=== PATIENT | female | born 1965 | race Caucasian/White ===

== ENCOUNTER 2025-09-20 14:32 | Inpatient (IN) | payer MEDICAID ==
[~2025-09-20] VITALS: Ht 165.1 cm; Wt 98.1 kg
--- NOTE | 2025-09-20 15:03 | ELECTROCARDIOGRAPH REPORT ---
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 Bubba Bowman Measurements Intervals [place] Rate: 65 P: 47 IN: 151 QRS: -40 QRSD: 124 T: 77 QT: 422 QTc: 439 Interpretive Statements Sinus rhythm RBBB and LAFB Nonspecific T abnormalities, lateral leads Electronically Signed On 09-22-2025 21:14:[address] Bubba Bowman Please click the below link to view image of tracing.
--- NOTE | 2025-09-20 15:10 | Physician Documentation ---
History of Present Illness ~ Chief Complaint: Dizziness Stated Complaint: FALL/WEAKNESS Time Seen by MD: 19:59 OK to notify your PCP?: Yes Source: patient Mode of Arrival: POV Exam Limitations: no limitations HPI 60 year old female with fibromyalgia presents to the ED after an episode of lower extremity weakness this morning at 0930. Patient states that she was walking down the hallway of her home when suddenly her legs felt "numb/noodly" and she dropped to the floor. While on the floor she reports feeling lightheaded. She states that she sat on the ground for about ten minutes because she felt as though her legs would not work, she sat there taking deep breaths until she was able to ambulate to a chair. She states that nothing like this has happened to her before and that she continued to feel "weird" for a couple hours after this event. She also notes that recently she has dealt with some mild diffuse itching and she has had a slight headache behind her right eye. She denies any back pain or head strike. She feels back to her baseline at this time. Patient denies any other associated symptoms. Patient denies any other alleviating or exacerbating factors at this time. Medication Reconciliation Allergies: Coded Allergies: No Known Allergies (Unverified , 09/21/25) Scheduled Duloxetine HCl (Duloxetine HCl), 1 CAP PO DAILY, (Reported) Hydrochlorothiazide (Hydrochlorothiazide), 1 TAB PO DAILY, (Reported) Past Medical History Past Medical History: Fibromyalgia Past Surgical History: noncontributory Lives In: Home Review of Systems All Other Systems at this time: Reviewed and Negative ROS As stated above in the HPI, otherwise all systems are reviewed and negative. Physical Exam Vital Signs: Temperature: 97.8, Source: Temporal, Heart Rate: 78, Respiratory Rate: 15, BP: 126/88, Pulse Oximetry: 98, Weight: 98.100 Oxygen Flow Rate: 0 Physical Exam General: Patient is awake, alert, oriented x4 in no acute distress and well appearing.~ Head: Normocephalic and atraumatic. Eyes: Conjunctival normal. EOMI. PERRL. ENT: Mucous membranes moist. Neck: Supple, trachea is midline. Chest: Clear to auscultation bilaterally without rales, rhonchi, or wheezes. There is no accessory muscle use or retractions. Cardiac: RRR without murmurs, gallops, or rubs. Abd: Soft, nondistended, nontender, with normoactive bowel sounds. No guarding, rebound, or rigidity. Extremities: Normal strength. Normal range of motion. No deformities or edema. Back: No midline spinal or CVA tenderness. Skin: Warm and dry with no significant rash appreciated. Neuro: Cranial nerves II-XII grossly intact. No focal neuro deficits. Patient ambulating without difficulty. Progress Progress Note 2040: Tele-nurology advises admission based on age of patient. Results/Orders Results/Orders Orders - ARIAS DAVIS MD Ct Head (09/20/25 20:40) Page Hospitalist (09/20/25:31) Fill Out Med Reconciliation (09/20/25:31) Completed Orders - ARIAS DAVIS MD Ct Head (09/20/25 20:40) Normal Saline 1000ml (0.9% Sodium Chlori (09/20/25 22:15) Ceftriaxone/Y9f-Lpjtgrpm 1gm (Rocephin 1 (09/20/25 22:15) Acetaminophen 1,000mg/100ml Iv (Ofirmev (09/20/25 22:15) Vital Signs 09/20/25 09/20/25 09/20/25 14:50 20:22 20:40 Temp 97.8 98.7 Pulse 78 68 Resp 15 18 B/P (MAP) 126/88 141/95 (110) Pulse Ox 98 95 O2 Flow Rate 0 0 Laboratory Tests Test 09/20/25 15:05 09/20/25 16:55 09/20/25 18:57 White Blood Count 6.5 Red Blood Count 4.62 Hemoglobin 14.6 Hematocrit 42.9 Mean Corpuscular Volume 93.0 Mean Corpuscular Hemoglobin 31.6 H Mean Corpuscular Hemoglobin Concent 34.0 Red Cell Distribution Width 13.7 Platelet Count 302 Mean Platelet Volume 7.1 L Neutrophils (%) (Auto) 53.4 Lymphocytes (%) (Auto) 34.7 Monocytes (%) (Auto) 9.0 Eosinophils (%) (Auto) 2.0 Basophils (%) (Auto) 0.9 Neutrophils # (Auto) 3.5 Lymphocytes # (Auto) 2.3 Monocytes # (Auto) 0.6 Eosinophils # (Auto) 0.1 Basophils # (Auto) 0.1 CBC Comment Sodium Level 139 Potassium Level 3.3 L Chloride Level 101 Carbon Dioxide Level 30.3 Anion Gap 8 Blood Urea Nitrogen 11 Creatinine 0.81 Estimated GFR/1.73 m2 72 BUN/Creatinine Ratio 13.6 Glucose Level 99 Hemoglobin A1c 5.5 Calcium Level 9.6 Troponin I High Sensitivity 5 5 6 Pro-B-Type Natriuretic Peptide 39 Albumin 4.1 Chemistry Comments Troponin I High Sens Percent Delta 0 20 Troponin I Hi Sens Absolute Change 0 1 EKG/XRAY/CT/US/VASC/MRI Chest X-Ray : Interpreted By: radiologist Views: 1 VIEW Additional Comments CHEST RADIOGRAPH INDICATION: CP TECHNIQUE: Single frontal view of the chest was obtained. COMPARISON: None FINDINGS: No focal consolidation. No significant pleural effusion. No pneumothorax. Nonenlarged cardiomediastinal silhouette. IMPRESSION: No acute pulmonary process. Electronically Signed by:YUNIOR TORRES MD Date & Time: 09/20/25 1523 Dictated by: YUNIOR TORRES MD Dictation date and time: 09/20/25 1503 Primary Care Provider: NO PRIMARY CARE PROVIDER cc: LEONARDO LEHMAN ~ Medical Decision Making Additional information obtaine: N/A Findings Patient presents to the emergency room for evaluation that has per HPI. Differentials include but are not limited to stroke, conversion disorder, functional neurologic systems disorder, transverse myelitis therefore emergent labs and imaging indicated. Neurology consulted recommends admission. Differential Dx:Considerations: Include: anemia, CVA, dehydration, dysrhythmia, electrolyte imbalance, encephalopathy, Guillain-Stewart, hypoglycemia, hypotension, hypovolemia, labyrinthitis, Meniere's disease, myasathenia gravis, myocardial infarction, pulmonary embolus, renal failure, respiratory failure, TIA, VBI, vertigo central, vertigo peripheral, vestibular neuronitis, other Departure Admitted to Inpatient Unit: yes, to hospitalist Impression: Primary Impression: Lower extremity weakness Condition: Guarded Referrals: NO PRIMARY CARE PROVIDER (PCP) Signature Scribe Signature: Scribed for Arias Davis MD by Scott Magaña . 09/20/25 20:40 Attestation: The note accurately reflects work and decisions made by me.Arias Davis MD 09/20/25 22:52 LEONARDO LEHMAN Sep 20, 2025 15:10 SCOTT OCAMPO Sep 20, 2025 20:43 ARIAS DAVIS MD Sep 20, 2025 22:52
[2025-09-20 15:11] LABS: MEAN PLATELET VOLUME 7.1 FL (7.4-10.4); RED CELL DISTRIBUTION WIDTH 13.7 % (11.5-14.5)
--- NOTE | 2025-09-20 15:26 | RADIOLOGY REPORT ---
CHEST RADIOGRAPH INDICATION: CP TECHNIQUE: Single frontal view of the chest was obtained. COMPARISON: None FINDINGS: No focal consolidation. No significant pleural effusion. No pneumothorax. Nonenlarged cardiomediastinal silhouette. IMPRESSION: No acute pulmonary process.
[2025-09-20 15:33] LABS: CREATININE 0.81 MG/DL (0.40-0.90); PRO BRAIN NATRIURETIC PEPTIDE 39 PG/ML (0-125); TOTAL CARBON DIOXIDE 30.3 MMOL/L (24-32); eCRCL 66 ML/MIN; eGFR 72 ML/MIN
--- NOTE | 2025-09-20 21:20 | [facility] CONSULT REPORT ---
[facility] Procedure Note [facility] Procedure Note Consult [facility] Note # Demographics Consult Type: General Neurology Patient Location: Emergency Room First Name: EVIE Last Name: SHANNAN Date of : 1965 Age: 60 Gender: Female Facility: [facility] Time of Initial Page (): 09/20/2025 20:12 First Contact with Site (): 09/20/2025 20:13 # HPI History: [id number] Patient was walking in the morning and her legs gave out and she was not able to walk. She had bilateral leg weakness and her symptoms have resulted and lasted approximately ten minutes. She has a history of fibromyalgia H/O HTN Duration: - resolved # Scores Time of exam and NIHSS (): 09/20/2025 21:18 Level of Consciousness 1a: [0] = Alert; keenly responsive LOC Questions 1b: [0] = Answers both questions correctly LOC Commands 1c: [0] = Performs both tasks correctly Best Gaze 2: [0] = Normal Visual 3: [0] = No visual loss Facial Palsy 4: [0] = Normal symmetrical movements Motor Arm Left 5a: [0] = No drift Motor Arm Right 5b: [0] = No drift Motor Leg Left 6a: [0] = No drift Motor Leg Right 6b: [0] = No drift Limb Ataxia 7: [0] = Absent Sensory 8: [0] = Normal Best Language 9: [0] = No aphasia Dysarthria 10: [0] = Normal Extinction and Inattention 11: [0] = No abnormality NIHSS Total: 0 ABCD2 Score for TIA: [1] = Age >/= 60 years: Yes [1] = BP >/= 140/90: Yes [0] = Clinical features of the TIA: other symptoms [1] = Duration of symptoms: 10-59 minutes [0] = History of diabetes: No ABCD2 Total: 3 # Assessment Impression: - Transient Ischemic Attack # Plan Thrombolytic/Intervention: NOT IV Thrombolysis or IA Intervention candidate Thrombolytic Exclusion (< 3 hour window): - NIHSS = 0 Intraarterial Exclusion: - clinical exam not consistent with presence of large vessel occlusion (LVO), can reconsider if LVO found on vascular imaging Modified Colin Scale (mRS) pre-stroke: [0] = No symptoms at all. Labs: - hemoglobin A1c - lipid panel - comprehensive metabolic panel - CBC Imaging: (urgency: STAT): Imaging: (urgency: routine): - MRI Brain without contrast Diagnostic Test: - echo with bubble study Medication: - start statin with goal of LDL < 70 - aspirin 81 mg PO PLUS clopidogrel (Plavix) 75 mg PO daily for 21 days, then monotherapy thereafter Other: - If patient has any neurological deterioration please call me back immediately - LDL < 70 - permissive hypertension - telemetry monitoring - will need event monitor or loop recorder as outpatient if atrial fibrillation not found as inpatient - neurology referral as outpatient - I have discussed my recommendations with the referring provider # Demographics First Name: EVIE Last Name: [facility] Facility: [facility] Neuro Consult Order placed for: Yes VANNESSA CHURCH MD Sep 20, 2025 21:20
--- NOTE | 2025-09-20 22:13 | RADIOLOGY REPORT ---
COMPUTERIZED TOMOGRAPHY OF THE HEAD WITHOUT CONTRAST REASON FOR STUDY: Weakness COMPARISON: None TECHNIQUE: Helical tomographic scans were obtained through the brain. 2-D coronal and sagittal reformatted images are provided. Radiation optimization: All CT scans at this facility use at least one of these dose optimization techniques: Automated exposure control mA and/or kV adjustment per patient size (includes targeted exams where dose is matched to clinical indication) or iterative reconstruction. RADIATION DOSE: CTDI: 57 mGy DLP: 1195 mGy-cm FINDINGS: No suspicious intracranial hyperdensity to suggest acute blood. There is no mass effect nor midline shift. There is mild generalized volume loss with compensatory enlargement of the CSF spaces. There is no hydrocephalus. The suprasellar cistern is intact. There are scattered periventricular and deep white matter hypodensities that are most consistent with chronic microangiopathic changes. The calvarium is intact. There are retention cysts versus polyps along the floor of the left maxillary sinus. The visualized mastoid air cells and paranasal sinuses are otherwise clear. IMPRESSION: No acute intracranial abnormality. Mild generalized volume loss with chronic small vessel ischemic change. Retention cysts versus polyps along the floor of the left maxillary sinus. Correlate clinically for acute sinusitis.
[2025-09-20] MEDS ORDERED: normal saline 1000ml 1,000 ML IV ONE (22:15)
[2025-09-20] MEDS ORDERED: CefTRIAXone/D5W-Rocephin 1gm 50 ML IV ONE (22:15)
[2025-09-20] MEDS ORDERED: acetaminophen 1,000mg/100ml IV 100 ML IV ONE (22:15)
[2025-09-20] MEDS ORDERED: HYDR25TA5 PO (23:23)
[2025-09-20] MEDS ORDERED: mag hydrox/Alum hydrox/simeth 30ml oral suspension PO PRN (23:25)
[2025-09-20] MEDS ORDERED: potassium Cl 40MEQ/1/2NS 520ml 520 ML IV PRN (23:25)
[2025-09-20] MEDS ORDERED: magnesium Cl slow-release 64mg tablet PO PRN (23:25)
[2025-09-20] MEDS ORDERED: magnesium sulf-water 2g/50mL 50 ML IV PRN (23:25)
[2025-09-20] MEDS ORDERED: magnesium hydroxide 30ml (MOM) UD suspension PO PRN (23:25)
[2025-09-20] MEDS ORDERED: HYDROcodone/acetaminophen 5mg/325mg tablet PO PRN (23:25)
[2025-09-20] MEDS ORDERED: magnesium sulf-water 4G/100mL 100 ML IV PRN (23:25)
[2025-09-20] MEDS ORDERED: ondansetron/PF 4mg/2ml inj IV PRN (23:25)
[2025-09-20] MEDS ORDERED: potassium Cl 20 mEq SR tablet PO PRN (23:25)
[2025-09-21] MEDS ORDERED: DULO60CA65 PO (00:02)
--- NOTE | 2025-09-21 00:46 | HISTORY AND PHYSICAL-Residence ---
History & Physical Providers to CC Resident Creating Document: REJI DUFFY, RES CC: IBRAHIMA ALARCON MD ~ History of Present Illness Reason for Admit\Complaint: Bilateral lower extremity weakness History of Present Illness A 60-year-old female with PMH of HTN and fibromyalgia presented to the ED in view of bilateral lower extremity weakness that started this morning. Patient describes that her legs study to give away and sat down with the associated numbness. Patient tried to step forward and fell down in view of weakness of bilateral lower extremities and Saturday for 5 minutes. She managed to get back to the chair for an hour. Patient got up and started to gradually get better after about an hour. Patient had frontal headache 2/10 in severity dull in character with no aggravating or relieving factors or radiation prior to the onset of this weakness. Patient had associated nausea but no vomitings were slurring of speech or blood in his vision or loss of consciousness. Patient denies fever chills burning micturition or difficulty urinating. Allergies: Coded Allergies: No Known Allergies (Unverified , 09/21/25) Home Medications Home Medications Active Reported Duloxetine HCl 60 Mg Capsule.dr 1 Cap PO DAILY 30 Days Hydrochlorothiazide 25 Mg Tab 1 Tab PO DAILY 30 Days Past Medical History Past Medical History HTN Fibromyalgia Past Surgical History Surgical History Comment None Past Social History Social History Comment Denies smoking Consumes marijuana in the night Drinks wants to glass of wine every day No PCP Moved to [place] in June as she lost her job in [place] and lives by herself Lives In: Home ROS ROS Constitutional: No fever, chills, dizziness, weight gain or loss Eyes: No pain, erythema, discharge, blurring of vision ENT: No sore throat, epistaxis, tinnitus Cardiovascular: No Shortness of breath. Chest pressure, chest discomfort, palpitations, syncope, lower extremity edema, paroxysmal nocturnal dyspnea Respiratory: No Shortness of breath and cough present, No hemoptysis Gastrointestinal: Normal appetite. No nausea, vomiting, diarrhea, constipation, hematemesis, abdominal pain, bloating, melena or fresh blood Musculoskeletal: No chronmic edema. Integumentary: No change in skin, hair, nails. No swelling, bruising, abrasions Neurologic: Headache, nausea, numbness, bilateral lower extremity weakness Psychiatric: No delusions, depression, loss of interest in normal activity or change in sleep pattern, hallucinations, suicidal ideations Endocrine: No fatigue, weakness, polydipsia, polyuria, change in appetite, heat or cold intolerance, sweating, dry skin Exam Vitals: Vital Signs Date Time Temp Pulse Resp B/P (MAP) Pulse Ox O2 Delivery O2 Flow Rate FiO2 09/20/25 23:21 85 14 121/76 (91) 96 0 09/20/25 20:22 98.7 General: General: Alert, awake, oriented, not in acute distress HEENT: PERRLA, no icterus, pallor, lymphadenopathy, carotid bruit Respiratory system: Bilateral vesicular breath sounds heard, no adventitious breath sounds CVS: S1-S2 heard, no murmurs/rubs/gallop GI: Soft, nontender, no organomegaly, no guarding/rigidity, bowel sounds present Neuro: No focal neurological deficits present Mental status exam: alert and consciousness, orientation, memory, speech, no deviation of the mouth or loss of forehead folds - Cranial nerve test: Cranial nerves 2-12 intact - Motor system: Nutrition, Tone 3+, Power 5/5 (bilateral upper extremities), power 3/5 (bilateral lower extremities), no involuntary movements - Sensory system: Intact - Reflex testing: Biceps, triceps and knee reflexes 2+ - Cerebellar: Normal Extremities: No edema cyanosis clubbing/deformities Skin: Warm and dry Diagnostic Data Last Recorded Lab Results: 09/20/25 1505 09/20/25 1505 Advance Care Planning Advanced Care plannin - 30 Minutes (I spent 20 minutes discussing various resuscitative measures and the patient decided to be full code) Additional Plan Assessment: A 60-year-old female with PMH of HTN and fibromyalgia presented to the ED in view of acute onset of bilateral lower extremity weakness that gradually resolved over a period of 1 hour. Patient is admitted for the evaluation management of TIA/acute CVA workup Plan: TIA Acute CVA, workup NIHSS: 1 CT head: Chronic microvascular ischemic changes EKG: T-wave inversions in V1 V2 V3, mild flattening in lateral leads. RBBB with LAFB Follow up with HGB A1c, lipid panel, CTA head and neck, MRI head, echo, U tox Patient received one dose of aspirin 325 mg Started the patient on aspirin 81 mg and Plavix 75 mg for 21 days followed by monotherapy, atorvastatin 80 mg once daily Allow for permissive hypertension with systolic blood pressure within the range of 140-180 mmHg for 48 hours PT/OT eval, NPO until swallow evaluation Neuro checks Continue to monitor telemetry Neurology recommendations as per above, appreciate recs Mild hypokalemia Potassium replacement protocol Continue to monitor potassium HTN Allow for permissive hypertension as per above for 48 hours Continue to monitor vitals Fibromyalgia Continue duloxetine once daily Code status: Full code Diet: Heart healthy DVT prophylaxis: Heparin Disposition: Admit to neuro, continue to monitor telemetry, follow up with echo/MRI head Reji Duffy MD Internal Medicine, PGY 2 Date of Service: Sep 20, 2025 Billing Provider: IBRAHIMA ALARCON MD, SIVA, RES Sep 21, 2025 00:46 IBRAHIMA ALARCON MD Sep 21, 2025 17:55
[2025-09-21] MEDS: PERFLUTREN PROTEIN-A MICROSPHR (Optison) 0.22 MG/ML 3ML VIAL IV ONE (00:53)
[2025-09-21 02:15] VITALS: BP 126/78; PULSE 94; RESP 14; TEMP 98.3; O2SAT 99
[2025-09-21] MEDS: potassium Cl 20 mEq SR tablet PO PRN (02:20)
[2025-09-21 02:28] LABS: LEUKOCYTE ESTERASE ,URINE NEGATIVE (Neg); NITRITES, URINE NEGATIVE (Neg); OCCULT BLOOD,URINE NEGATIVE (Neg); UA COLLECTION TYPE NON-SPECIFIED
[2025-09-21 02:45] LABS: URINE AMPHETAMINE SCREEN NEGATIVE (Neg); URINE BARBITUATE SCREEN NEGATIVE (Neg); URINE BENZODIAZEPINES SCREEN NEGATIVE (Neg); URINE CANNABINOID SCREEN POSITIVE (Neg); URINE COCAINE SCREEN NEGATIVE (Neg); URINE METHADONE SCREEN NEGATIVE (Neg); URINE OPIATE SCREEN NEGATIVE (Neg); URINE PHENCYCLIDINE SCREEN NEGATIVE (Neg)
[2025-09-21 06:00] VITALS: BP 115/69; PULSE 70; RESP 14; TEMP 98.1; O2SAT 94
[2025-09-21 06:33] LABS: MEAN PLATELET VOLUME 7.5 FL (7.4-10.4); RED CELL DISTRIBUTION WIDTH 13.7 % (11.5-14.5)
[2025-09-21 06:50] LABS: CHOL/HDL RATIO 3.0 (0.00-4.99); CREATININE 0.76 MG/DL (0.40-0.90); LDL CHOLESTEROL 111 MG/DL (50-100); TOTAL CARBON DIOXIDE 32.4 MMOL/L (24-32); eCRCL 70 ML/MIN; eGFR 77 ML/MIN
[2025-09-21] MEDS: aspirin 81mg, enteric-coated 1 TAB TABLET.DR PO SCH (07:29)
[2025-09-21] MEDS: duloxetine 30mg CAPSULE.DR PO SCH (07:29)
[2025-09-21 07:30] VITALS: RESP 18; O2SAT 94
[2025-09-21] MEDS: docusate sod 100mg capsule PO SCH (07:30)
[2025-09-21] MEDS: heparin, porcine 5000 units/ml vial SQ SCH (07:31)
[2025-09-21] MEDS: K and/or MAG REPLACEMENT MC SCH (08:44)
[2025-09-21 10:00] VITALS: BP 117/77; PULSE 80; RESP 18; TEMP 98; O2SAT 95
--- NOTE | 2025-09-21 11:29 | RADIOLOGY REPORT ---
CLINICAL HISTORY: CVA TECHNIQUE: CT angiogram of the head and neck was performed without and with intravenous contrast. 3D MIP reconstructed images were created and archived on the PACS system. This exam was performed according to our departmental dose optimization program. Up-to-date CT equipment and radiation dose reduction techniques are utilized as appropriate. CTDI 16 DLP 561 COMPARISON: CT CT HEAD on DOS: 09/20/25 FINDINGS: CTA NECK: The common carotid, internal carotid, and vertebral arteries are patent with no evidence for high grade narrowing, occlusion, and dissection. There is no significant narrowing at the carotid bulbs per NASCET criteria. There are multilevel degenerative changes with posterior disc osteophyte complexes and facet/ uncovertebral hypertrophy. Facet and uncovertebral hypertrophy resulting in multilevel neural foraminal narrowing, which appears moderate bilaterally at C4-C5 and C6-C7 and severe at C5-C6 on the right. There is moderate right C3-C4 neural foraminal narrowing. CTA HEAD: The anterior and posterior intracranial circulations are intact with no evidence for high grade narrowing, occlusion, or aneurysm. There are bilateral posterior communicating arteries. IMPRESSION: No acute CTA abnormality of the major head and neck arterial vasculature. Multilevel neural foraminal narrowing, severe at C5-C6 on the right. Multilevel posterior disc osteophyte complexes. If better system is warranted, cervical spine MRI is suggested.
--- NOTE | 2025-09-21 13:27 | RADIOLOGY REPORT ---
CLINICAL HISTORY: CVA TECHNIQUE: Routine multiplanar imaging of the brain was performed without gadolinium contrast. COMPARISON: CT CTA NECK/HEAD on DOS: 09/21/25, CT CT HEAD on DOS: 09/20/25 FINDINGS: There is no abnormal restricted diffusion to suggest acute infarction. There are scattered T2 hyperintense foci within the white matter both cerebral hemispheres, which are most compatible with a mild burden of nonspecific chronic small vessel ischemic change. There is no evidence for acute ischemic changes, mass, mass effect, or extra- axial fluid collection. There is no hydrocephalus or midline shift. The cerebral sulci and subarachnoid cisterns are not effaced. The imaged paranasal sinuses demonstrate mild left maxillary sinus mucosal thickening. The globes are intact. The midline structures, including the corpus callosum, are unremarkable. The intracranial flow voids are maintained. IMPRESSION: No acute intracranial abnormality seen. No evidence for acute infarct. Mild chronic small vessel ischemic change.
[2025-09-21 18:00] VITALS: BP 108/63; PULSE 89; RESP 18; TEMP 97.6; O2SAT 96
--- NOTE | 2025-09-21 19:06 | PROGRESS NOTE ---
Daily Progress Note Providers to CC ~ Antibiotic Timeout Antibiotic Ordered?: No Subjective The patient's lower extremity weakness has completely resolved the patient is back to her baseline all imaging studies including MRI of the brain were negative for stroke. The patient is started on atorvastatin and a awaiting physical therapy evaluation Objective Vital Signs Date Time Temp Pulse Resp B/P (MAP) Pulse Ox O2 Delivery O2 Flow Rate FiO2 09/21/25 10:00 98.0 80 18 117/77 (90) 95 Room Air 09/21/25 02:02 0 Result Diagram: 09/21/25 0542 09/21/25 0542 Gen. No acute distress alert and oriented 4 Lungs clear to ascultation bilaterally, no wheezes rales or rhonchi appreciated Heart normal sinus rhythm no murmurs rubs or clicks noted Abdomen soft nontender bowel sounds are normoactive Lower extremities no clubbing cyanosis, nor edema appreciated bilaterally Problem\Assessment\Plan Problems/Diagnosis: (1) Lower extremity weakness # bilateral lower extremity weakness secondary to TIA Acute CVA is ruled out- including no acute findings on head CT scan or MRI of the brain and a CTA of the head and neck were negative for any high-grade narrowing occlusions or aneurysms. The patient has a total cholesterol 204 with LDL of 111 and HDL 68 is started on atorvastatin On 81 mg aspirin and 75 mg of Plavix- continue dual platelet therapy for 21 days and then 81 mg aspirin The preliminary report on the echocardiogram demonstrates an LVEF of 60% awaiting cardiology evaluation # hypokalemia Potassium replacement protocol # hypertension The patient is normotensive in her home blood pressure medications are held # DVT prophylaxis SQ heparin disposition: Anticipate discharge home tomorrow after seen by Physical therapy Date of Service: Sep 21, 2025 Billing Provider: DARIA MENDEZ DO Common Visit Codes: [id number] INP/OBS CARE(HIGH) DARIA MENDEZ DO Sep 21, 2025 19:06
--- NOTE | 2025-09-21 20:34 | [facility] NEURO CONSULT REPORT ---
[facility] Procedure Note [facility] Procedure Note Consult [facility] Note # Demographics Consult Type: Follow-Up Phone Call Patient Location: Inpatient First Name: sarath Last Name: ellyn Date of : 1965 Age: 60 Gender: Female Facility: [facility] Time of Initial Page (): 09/21/2025 15:00 First Contact with Site (): 09/21/2025 15:03 Phone Only Consult: previously seen by Dr. Delgado. At that time he thought TIA most likely. SX resolved prior to negative mri. Should continue his recommendations Phone Agreement: - phone consult deemed mutually sufficient for patient care # Assessment Impression: - Other # Plan Other: - If patient has any neurological deterioration please call me back immediately - I have discussed my recommendations with the referring provider # Logistics Attestation of consult completion: The patient is located at: [facility]. I performed this phone consultation from my offsite office Total time spent in telemedicine encounter: I spent 5 minutes in reviewing clinical data and/or imaging, obtaining history, communicating with the onsite care team, and in preparation of this report. # Demographics First Name: sarath Last Name: ellyn Facility: [facility] Electronically signed at 09/21/2025 20:33 () by Neo Horn MD Neuro Consult Order placed for: Yes ANGEL HORN MD Sep 21, 2025 20:34
[2025-09-21] MEDS: HALLS - SOOTHE MENTHOL 1.8 MG cough drop LOZENGE MM PRN (22:15)
[2025-09-21 22:48] VITALS: BP 118/79; PULSE 82; RESP 12; TEMP 98.3; O2SAT 94
[2025-09-22 02:55] VITALS: BP 104/63; PULSE 84; RESP 16; TEMP 99; O2SAT 93
[2025-09-22 06:00] VITALS: BP 123/74; PULSE 89; RESP 16; TEMP 98.3; O2SAT 93
[2025-09-22 06:03] LABS: MEAN PLATELET VOLUME 7.3 FL (7.4-10.4); RED CELL DISTRIBUTION WIDTH 13.8 % (11.5-14.5)
[2025-09-22 06:17] LABS: CREATININE 0.80 MG/DL (0.40-0.90); TOTAL CARBON DIOXIDE 29.2 MMOL/L (24-32); eCRCL 66 ML/MIN; eGFR 73 ML/MIN
[2025-09-22 08:00] VITALS: RESP 16; O2SAT 95
[2025-09-22] MEDS ORDERED: CLOP75TA34 PO (10:03)
[2025-09-22] MEDS ORDERED: ASPI-612 PO (10:03)
[2025-09-22] MEDS ORDERED: ATOR40TA71 PO (10:03)
--- NOTE | 2025-09-22 13:36 | CARDIOLOGY REPORT ---
APPROVED REPORT EXAM: Comprehensive 2D, Doppler, and color-flow Echocardiogram. 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 3.50 cm CO 3.9 L/min M-Mode Dimensions IVSd 1.09 (0.7-1.1cm) LVDd 4.30 (4.0-5.6cm) Aortic Root 4.00 (2.2-3.7cm) PWd 1.00 (0.7-1.1cm) IVSs 1.48 cm MV EPSS 0.4 (<0.5cm) LVDs 2.96 (2.0-3.8cm) FS (%) 31 % PWs 1.52 cm ESV(Teich) 33.8 ml LVEF(%) 59 (>50%) Aortic Valve AoV Peak Yasmany. 122.7 cm/s AoV VTI 22.6 cm AO Peak GR. 6.0 mmHg AO Mean GR. 3 mmHg LVOT VTI 18.57 cm LVOT Peak Yasmany. 84.2 cm/s TR(VTI)/BSA 2.68 cm2/m2 TR (VTI) 2.68 cm2 AV DI 0.82 % Mitral Valve MV E Velocity 52.6 cm/s MV Peak Gr. 1 mmHg MV DECEL TIME 208 ms MV A Velocity 72.4 cm/s MV PHT 68 ms E/A Ratio 0.7 MVA (PHT) 3.24 cm2 MV VMax 45.6 cm/s LEFT VENTRICLE Normal LV size and function. Mild concentric hypertrophy. Overall LVEF is 60%. RIGHT VENTRICLE RV is grossly normal in size and function. ATRIA Left atrium is mildly dilated. AORTIC VALVE Trileaflet AV appears minimally sclerotic without stenosis or insufficiency by color and spectral flow Doppler. MITRAL VALVE Mild MV annular calcification without stenosis. Trace regurgitation by color and spectral flow Doppler. TRICUSPID VALVE TV appears grossly structurally normal with ? trace regurgitation by color and spectral flow Doppler. Valve not well visualized. PULMONIC VALVE Normal PV without stenosis, physiologic insufficiency by color and spectral flow Doppler. GREAT VESSELS Aortic root is normal in size. Ascending aorta is normal in size. PERICARDIUM Normal pericardium. No effusion. Other Information Study Quality: Technically Difficult due to habitus. Limited imaging windows. Measurements are estimates. Conclusion Overall LVEF is 60%. Normal LV size and function. Mild concentric hypertrophy. RV is grossly normal in size and function. Trileaflet AV appears minimally sclerotic without stenosis or insufficiency by color and spectral flow Doppler. Mild MV annular calcification without stenosis. Trace regurgitation by color and spectral flow Doppler. TV appears grossly structurally normal with ? trace regurgitation by color and spectral flow Doppler. Valve not well visualized. Normal PV without stenosis, physiologic insufficiency by color and spectral flow Doppler. Normal pericardium. No effusion.
--- NOTE | 2025-09-22 19:21 | DISCHARGE SUMMARY ---
Discharge Summary Providers to CC ~ Discharge Summary Admission Diagnosis: CVA WORK UP Hospital Course DATE OF ADMISSION: 09/20/2025 DATE OF DISCHARGE: 09/22/2025 Discharge Diagnosis\\Comment: Bilateral lower extremity weakness secondary to TIA Hypokalemia Hyperlipidemia Hypertension Operations\\Procedures: None Consultants: Dr. Delgado Telemedicine neurology, phone consultation with Dr. Ike Schneider Telemedicine neurology Complications: None Condition on DC: Stable New Medications: Aspirin (Aspir 81) 81 Mg Tablet.dr 1 TAB PO DAILY for 30 Days, #30 TAB 1 Refill Atorvastatin Calcium (Atorvastatin Calcium) 40 Mg Tablet 1 TAB PO DAILY for 30 Days, #30 TAB 1 Refill Clopidogrel Bisulfate (Clopidogrel) 75 Mg Tablet 75 MG PO DAILY, #20 TAB Do not stop medication unless instructed by prescriber. Continued Medications: Duloxetine HCl (Duloxetine HCl) 60 Mg Capsule.dr 1 CAP PO DAILY for 30 Days, #30 CAP 0 Refills Hydrochlorothiazide (Hydrochlorothiazide) 25 Mg Tab 1 TAB PO DAILY for Hypertension for 30 Days, #30 TAB 0 Refills Discharge Summary: The patient is admitted by resident physician PENELOPE Nick , under the supervision of IBRAHIMA Hoyt MD with the following HPI:"A 60-year-old female with PMH of HTN and fibromyalgia presented to the ED in view of bilateral lower extremity weakness that started this morning. Patient describes that her legs study to give away and sat down with the associated numbness. Patient tried to step forward and fell down in view of weakness of bilateral lower extremities and Saturday for 5 minutes. She managed to get back to the chair for an hour. Patient got up and started to gradually get better after about an hour. Patient had frontal headache 2/10 in severity dull in character with no aggravating or relieving factors or radiation prior to the onset of this weakness. Patient had associated nausea but no vomitings were slurring of speech or blood in his vision or loss of consciousness. Patient denies fever chills burning micturition or difficulty urinating." By the morning of the the patient's symptoms had resolved her MRI was negative for acute stroke in her head CT scan was unremarkable and a CTA of the head was unremarkable as well other than multilevel neuroforaminal stenosis of the cervical spine severe at C5-C6. The patient is echocardiogram was unremarkable as well with an LVEF of 65%. The patient was as per recommendations of Telemedicine neurology dual platelet therapy for 21 days including Plavix and aspirin and the patient is discharged with both medications and then to continue aspirin after the 21 days the patient is also discharged on atorvastatin 40 mg daily. The patient's cholesterol panel is as follows triglycerides of 56 total ch olesterol of 204 with an LDL of 111 and HDL 68. I did recommend to the patient that take Co Q10 to help mitigate any of the side -effects of a statin Gen. No acute distress alert and oriented 4 Lungs clear to ascultation bilaterally, no wheezes rales or rhonchi appreciated Heart normal sinus rhythm no murmurs rubs or clicks noted Abdomen soft nontender bowel sounds are normoactive Lower extremities no clubbing cyanosis, nor edema appreciated bilaterally The patient felt ready to be discharged and was medically cleared to be discharged on 09/22/2025 The patient was seen and evaluated on day of discharge. Time spent on discharge 35 minutes *Problems/Diagnosis: (1) Lower extremity weakness Status: Acute Total Time Spent on D/C: > 30 Minutes Date of Service: Sep 22, 2025 Billing Provider: DARIA MENDEZ DO Common Visit Codes: 61208-NHQ/OBS DISCH DAY >30min DARIA MEDNEZ DO Sep 22, 2025 19:21
== END 2025-09-22 10:40 | disposition home or self-care (01) | DRG 47 ==
LOC: ER 14:34 → ED HOLD 22:47 → EDBEDREQ 09-21 01:11 → ORTHO 4S 09-21 02:13
PROVIDERS: ADMIT Internal Medicine; ATTEND Family Medicine
PROC: B3251ZZ Computerized Tomography (CT Scan) of Bilateral Common Carotid Arteries using Low Osmolar Contrast (ICD-10-PCS; principal; 2025-09-21)
PROC: B32G1ZZ Computerized Tomography (CT Scan) of Bilateral Vertebral Arteries using Low Osmolar Contrast (ICD-10-PCS; 2025-09-21)
PROC: B32R1ZZ Computerized Tomography (CT Scan) of Intracranial Arteries using Low Osmolar Contrast (ICD-10-PCS; 2025-09-21)
PROC: B3281ZZ Computerized Tomography (CT Scan) of Bilateral Internal Carotid Arteries using Low Osmolar Contrast (ICD-10-PCS; 2025-09-21)
DX: G45.9 Transient cerebral ischemic attack, unspecified (principal); E78.5 Hyperlipidemia, unspecified; I10 Essential (primary) hypertension; E87.6 Hypokalemia; M79.7 Fibromyalgia; M48.02 Spinal stenosis, cervical region; Z79.899 Other long term (current) drug therapy
CPT/HCPCS: 36415; 70450; 70496; 70498; 70551; 71045; 80048; 80061; 80305; 81003; 82948; 83036; 83605; 83735; 83880; 84484; 85025; 87040; 87081; 93005; 93306; 97110; 97116; 97162; 99285; G0378; J1644; J7030; Q9967